=== PATIENT | female | born 1975 | race Caucasian/White ===

== ENCOUNTER 2022-01-15 02:33 | Emergency (ER) | payer MEDICAID ==
[~2022-01-15] VITALS: Ht 157.5 cm; Wt 70.8 kg
[2022-01-15 05:02] LABS: Basophils # (auto) 0 10 ^3/uL (0-0.2); Eosinophils # (auto) 0 10 ^3/uL (0-0.8); Lymphocytes # (auto) 1.4 10 ^3/uL (0.4-5.4); Monocytes # (auto) 0.2 10 ^3/uL (0-1.3); Neutrophils # (auto) 1.3 10 ^3/uL (1.6-8.6); Nucleated Red Blood Cells % 0.1 %
[2022-01-15 05:04] LABS: Basophils % (auto) 0.8 % (0.0-2.0); Hematocrit 38.8 % (36.0-46.0); Hemoglobin 13.3 g/dL (12.2-16.2); Lymphocytes % (auto) 48.2 % (10.0-50.0); Mean Corpuscular Hemoglobin 34.5 pg (28.0-32.0); Mean Corpuscular Hgb Conc. 34.4 g/dL (32.0-36.0); Mean Corpuscular Volume 100.3 fL (80.0-100.0); Monocytes % (auto) 7.2 % (0.0-12.0); Neutrophils % (auto) 42.8 % (37.0-80.0); Red Blood Cells 3.87 10^6/uL (4.0-5.20); Red Cell Distribution Width 16.5 % (11.8-14.3); White Blood Cell 2.9 10^3/uL (4.4-10.8)
[2022-01-15 05:24] LABS: Albumin 3.4 g/dL (3.4-5.0); Calcium 8.5 mg/dL (8.5-10.1); Potassium 3.3 mmol/L (3.5-5.1)
[2022-01-15 05:26] LABS: BUN/Creatinine Ratio 7.8
[2022-01-15 05:28] LABS: Bilirubin, Total 0.2 mg/dL (0.2-1.0); Total Protein 6.3 g/dL (6.4-8.2)
[2022-01-15 07:53] VITALS: BP 120/77
[2022-01-15] MEDS ORDERED: BENZ100C19 PO (09:59)
[2022-01-15] MEDS ORDERED: CLIN-203 PO (09:59)
[2022-01-15] MEDS ORDERED: PRE1T PO (11:03)
== END 2022-01-15 11:25 | disposition home or self-care (01) ==
LOC: ER 02:33
DX: L01.00 Impetigo, unspecified (principal); J44.9 Chronic obstructive pulmonary disease, unspecified; F17.210 Nicotine dependence, cigarettes, uncomplicated; Z88.5 Allergy status to narcotic agent; Z88.8 Allergy status to other drugs, medicaments and biological substances; Z20.822 Contact with and (suspected) exposure to COVID-19
CPT/HCPCS: 36415; 71045; 80053; 84484; 85025; 87426; 93005; 99285; C9803; U0003

== ENCOUNTER 2023-12-17 10:49 | Emergency (ER) | payer MEDICAID ==
[~2023-12-17] VITALS: Ht 167.6 cm; Wt 73.5 kg
[~2023-12-17 10:49] MED LIST: BENZ100C19 PO; CLIN-203 PO; CYCL-837 PO; IBUP-1456 PO; PRE1T PO
[2023-12-17 11:09] VITALS: BP 102/73; PULSE 88; RESP 18; O2SAT 96
[2023-12-17] MEDS ORDERED: HYDR-4902 PO (14:30)
[2023-12-17] MEDS ORDERED: NABU-72 PO (14:30)
== END 2023-12-17 14:38 | disposition home or self-care (01) ==
LOC: ER 10:49
DX: M25.552 Pain in left hip (principal); M25.522 Pain in left elbow; F17.210 Nicotine dependence, cigarettes, uncomplicated; J44.9 Chronic obstructive pulmonary disease, unspecified; Z88.6 Allergy status to analgesic agent; Z88.8 Allergy status to other drugs, medicaments and biological substances
CPT/HCPCS: 73080; 73502

== ENCOUNTER 2024-02-08 16:20 | Emergency (ER) | payer MEDICAID ==
[~2024-02-08] VITALS: Ht 165.1 cm; Wt 84.0 kg
[~2024-02-08 16:20] MED LIST changes: +HYDR-4902 PO; +NABU-72 PO
[2024-02-08 16:35] VITALS: PULSE 88; RESP 16; O2SAT 90
[2024-02-08 16:45] VITALS: TEMP 98.2
[2024-02-08 16:55] LABS: Basophils # (auto) 0 10 ^3/uL (0-0.2); Basophils % (auto) 0.4 % (0.0-2.0); Eosinophils # (auto) 0 10 ^3/uL (0-0.8); Eosinophils % (auto) 0.5 % (0.0-7.0); Hematocrit 44.1 % (36.0-46.0); Hemoglobin 14.8 g/dL (12.2-16.2); Lymphocytes # (auto) 3.1 10 ^3/uL (0.4-5.4); Mean Corpuscular Hemoglobin 32.9 pg (28.0-32.0); Mean Corpuscular Hgb Conc. 33.6 g/dL (32.0-36.0); Mean Corpuscular Volume 97.9 fL (80.0-100.0); Monocytes # (auto) 0.3 10 ^3/uL (0-1.3); Monocytes % (auto) 4.7 % (0.0-12.0); Neutrophils # (auto) 2.3 10 ^3/uL (1.6-8.6); Neutrophils % (auto) 39.4 % (37.0-80.0); Nucleated Red Blood Cells % 0.1 %; Red Cell Distribution Width 15.9 % (11.8-14.3); White Blood Cell 5.7 10^3/uL (4.4-10.8)
[2024-02-08 17:13] LABS: Alanine Aminotransferase 64 U/L (7-40); Albumin 4.5 g/dL (3.2-4.8); Alkaline Phosphatase 90 U/L (46-116); Anion Gap 5 (5-15); Aspartate Aminotransferase 93 U/L (13-40); BUN/Creatinine Ratio 6.8 (10.0-20.0); Bilirubin, Total 0.2 mg/dL (0.2-1.0); Blood Urea Nitrogen 5 mg/dL (9-23); Calcium 9.6 mg/dL (8.7-10.4); Carbon Dioxide 26 mmol/L (20-30); Chloride 113 mmol/L (98-107); Glucose 95 mg/dL (74-106); Potassium 3.6 mmol/L (3.5-5.1); Sodium 144 mmol/L (136-145); Total Protein 7.1 g/dL (5.7-8.2)
[2024-02-08 18:00] VITALS: BP 107/73; PULSE 77; RESP 12; O2SAT 97
== END 2024-02-08 19:28 | disposition home or self-care (01) ==
LOC: ER 16:20 → EDBD 16:20 → ER 19:28
DX: R29.5 Transient paralysis (principal); R53.1 Weakness; J44.9 Chronic obstructive pulmonary disease, unspecified; F17.210 Nicotine dependence, cigarettes, uncomplicated; Z88.6 Allergy status to analgesic agent; Z88.8 Allergy status to other drugs, medicaments and biological substances
CPT/HCPCS: 36415; 72100; 80053; 83880; 84484; 85025; 85379

== ENCOUNTER 2024-11-18 21:45 | Emergency (ER) | payer MEDICAID ==
[~2024-11-18] VITALS: Ht 170.2 cm; Wt 75.0 kg
[2024-11-18 21:53] VITALS: BP 106/73; PULSE 104; RESP 16; O2SAT 98
== END 2024-11-19 01:06 | disposition left against medical advice (07) ==
LOC: ER 21:45 → EDBD 21:45 → ER 11-19 01:06
DX: T14.8XXA Other injury of unspecified body region, initial encounter (principal); Z53.21 Procedure and treatment not carried out due to patient leaving prior to being seen by health care provider; W54.0XXA Bitten by dog, initial encounter; Y93.89 Activity, other specified; Y92.89 Other specified places as the place of occurrence of the external cause; Y99.8 Other external cause status

== ENCOUNTER 2024-11-28 18:06 | Emergency (ER) | payer MEDICAID ==
[~2024-11-28] VITALS: Ht 157.5 cm; Wt 72.0 kg
[2024-11-28 18:06] VITALS: BP 126/61; RESP 16; O2SAT 98
[~2024-11-28 18:06] MED LIST changes: +IOHEXOL 350 MG/ML 100ML IJ ONE
--- NOTE | 2024-11-28 18:20 | ECG ---
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
[2024-11-28 18:39] LABS: Basophils # (auto) 0 10 ^3/uL (0-0.2); Basophils % (auto) 0.5 % (0.0-2.0); Eosinophils # (auto) 0 10 ^3/uL (0-0.8); Eosinophils % (auto) 0.3 % (0.0-7.0); Hematocrit 44.6 % (36.0-46.0); Hemoglobin 15.2 g/dL (12.2-16.2); Lymphocytes # (auto) 2.6 10 ^3/uL (0.4-5.4); Mean Corpuscular Hgb Conc. 34.1 g/dL (32.0-36.0); Mean Corpuscular Volume 99.8 fL (80.0-100.0); Monocytes # (auto) 0.2 10 ^3/uL (0-1.3); Monocytes % (auto) 4.1 % (0.0-12.0); Neutrophils # (auto) 2.8 10 ^3/uL (1.6-8.6); Neutrophils % (auto) 49.1 % (37.0-80.0); Nucleated Red Blood Cells % 0.1 %; Platelet Count (auto) 248 10^3/uL (140-450); Red Blood Cells 4.46 10^6/uL (4.0-5.20); Red Cell Distribution Width 14.5 % (11.8-14.3); White Blood Cell 5.6 10^3/uL (4.4-10.8)
[2024-11-28 18:41] LABS: Urine Bacteria None Seen /hpf (None Seen)
[2024-11-28 18:54] LABS: Alkaline Phosphatase 59 U/L (46-116); Anion Gap 12 (5-15); Calcium 9.9 mg/dL (8.7-10.4); Carbon Dioxide 23 mmol/L (20-31); Glucose 99 mg/dL (74-106); Potassium 4.1 mmol/L (3.5-5.1); Sodium 144 mmol/L (136-145)
[2024-11-28 18:55] LABS: BUN/Creatinine Ratio 11.1 (10.0-20.0); Total Protein 7.1 g/dL (5.7-8.2)
[2024-11-28 18:57] LABS: Alanine Aminotransferase 72 U/L (7-40); Aspartate Aminotransferase 78 U/L (13-40); Bilirubin, Total 0.2 mg/dL (0.2-1.0); Blood Urea Nitrogen 7 mg/dL (9-23); Chloride 109 mmol/L (98-107)
[2024-11-28 19:00] LABS: Urine Blood Negative /uL (Negative); Urine Clarity Clear (Clear); Urine Color Colorless (Yellow); Urine Protein, UAD Negative (Negative); Urine Specific Gravity 1.002 (1.001-1.035); Urine Squamous Epithelial Cell None Seen /hpf (<5); Urine Urobilinogen Normal (Negative); Urine pH 5.5 (5.0-9.0)
[2024-11-28] MEDS: MECLIZINE HCL 25 MG TAB PO ONE (19:06)
[2024-11-28] MEDS: SODIUM CHLORIDE 0.9% 1,000 ML IV ONE (19:07)
[2024-11-28 19:11] LABS: Urine WBC 3 /HPF (0-5)
--- NOTE | 2024-11-28 19:12 | DVH ---
EXAM: CT HEAD WITHOUT CONTRAST INDICATION: Suspected CVA TECHNIQUE: CT of the head without intravenous contrast. Radiation Dose Information: CT Dose: CTDI volume is 58.28 mGy. Dose-length product is 1031.67 mGy*cm The dose indicators for CT are the volume Computed Tomography (CT) Dose Index (CTDIvol) and the Dose Length Product (DLP), and are measured in units of mGy and mGy-cm, respectively. These indicators are not patient dose, but values generated from the CT scanner acquisition factors. The report includes radiation exposure data for exposures received during this examination. COMPARISON: None FINDINGS: There is no evidence of acute intracranial hemorrhage, extra-axial collection, mass effect, midline s hift, herniation or hydrocephalus. The ventricles, sulci and cisterns are age appropriate. The barragan-white differentiation is intact. Patchy periventricular and subcortical white matter hypoattenuation is nonspecific but may be related to small vessel ischemic disease. The visualized paranasal sinuses and mastoid air cells are clear. The surrounding soft tissues and osseous structures are unremarkable. IMPRESSION: 1. No acute intracranial hemorrhage 2. No CT findings of territorial ischemia.
--- NOTE | 2024-11-28 19:27 | DVH ---
INDICATION: Suspected CVA COMPARISON: None TECHNIQUE:CTA neck with intravenous contrast. 3D/MIP image postprocessing was performed and images we re used for interpretation and reporting. Radiation Dose Information: CT Dose: CTDI volume is 22.35 mGy. Dose-length product is 772.72 mGy*cm FINDINGS: CTA neck: The aortic arch and proximal part of the major arch vessels are not imaged. Bilateral subclavian ana laverne, visualized bilateral common carotid arteries, and bilateral cervical ICAs are unremarkable. Bilateral vertebral arteries are unremarkable with left dominant vertebral artery. CTA head: Bilateral ACAS, bilateral MCAs and bilateral intracranial ICAs are unremarkable. Bilateral BLOOD BANK CALENDAR CONTROL CLERK, bilateral superior cerebellar arteries, basilar artery and bilateral intracranial checo tebral arteries are unremarkable. The dural venous sinuses opacify normally. No abnormal intracranial enhancement. Subcentimeter cervical lymph nodes largest over the Bilateral level ones measuring up to 0.8 cm on th e left. IMPRESSION: No hemodynamically significant stenosis, aneurysm or vascular malformation involving the major intrac ranial and neck vessels. CAROTID STENOSIS REFERENCE Distal internal carotid artery diameter as the denominator for stenosis measurement: MILD = <50% stenosis. MODERATE = 50-69% stenosis. SEVERE = 70-89% stenosis. CRITICAL = 90-99% stenosis. OCCLUDED = 100% stenosis. All CT scans at this medical facility are performed using dose modulation techniques as appropriate t o a performed exam including the following: Automated exposure control was utilized; adjustment of th e MA and/or KV according to patient size; and use of iterative reconstruction technique.
[2024-11-28 20:41] VITALS: PULSE 72
--- NOTE | 2024-11-28 20:41 | ED.PDOC ---
History of Present Illness HPI Comments 49-year-old female, with a reported history of endocarditis in 2019, asthma, and hyperlipidemia, is BIBA with complaint of dizziness and nausea, today. Patient endorses on sudden and unprovoked onset of symptoms, while washing dishes, earlier, today. She comments on dizziness having room-spinning sensation a ssociated with it and reports having an isolated episode of "ear-ringing," yesterday. Patient reports no further relevant or pertinent information, with exception of recent dog bite injury, last week, that she endorses on healing without complications, currently. Per EMS report, patient's vitals were reported to have been stable and within normal limits, with a blood glucose of 96. Patient denies any vomiting, fever, chills, headache, vision or speech changes, urinary symptoms, or other associated symptoms or modifiers at this time. Chief Complaint: Dizziness Time Seen by MD: 18:10 Primary Care Provider: CHRYSTAL Reviewed Notes: Nurses Notes, Research Investigator Notes, Medications, Allergies Allergies: Coded Allergies: Codeine (Verified Allergy, Unknown, 01/15/22) Polyethylene Glycol (Verified Allergy, Unknown, 01/15/22) Propylene Glycol (Verified Allergy, Unknown, 01/15/22) Saccharin (Verified Allergy, Unknown, 01/15/22) Sodium Benzoate (Verified Allergy, Unknown, 01/15/22) Home Meds Active Scripts Hydrocodone-Acetaminophen (Hydrocodone Bitartrate/AC 5-325 mg) 1 Tab Tab, 1 TAB PO Q6HP PRN for 5 Days, #12 TAB Prov:LORRI SALTER 12/17/23 Nabumetone (Nabumetone) 500 Mg Tab, 1 TAB PO BID PRN, #30 TAB Prov:LORRI SALTER 12/17/23 Cyclobenzaprine Hcl (Cyclobenzaprine Hcl) 5 Mg Tab, 1 TAB PO QPM PRN, #14 TAB 0 Refills Prov:WALT KUMAR 06/03/23 Ibuprofen (Ibuprofen) 800 Mg Tab, 1 TAB PO TID PRN, #30 TAB 0 Refills Prov:WALT KUMAR 06/03/23 Prednisone (PREDNISONE) 1 Mg Tb, 4 TAB PO BID for 5 Days, #10 TAB 3 Refills Prov:JANET GONZALEZ MD 01/15/22 Benzonatate (Tessalon Perles) 100 Mg Cap, 1 CAP PO TID PRN for 10 Days, #21 CAP Prov:JANET GONZALEZ MD 01/15/22 Clindamycin HCl (Clindamycin Hydrochloride) 300 Mg Cap, 450 MG PO TID for 10 Days, #90 CAP Prov:JANET GONZALEZ MD 01/15/22 Information Source: Patient, Emergency Med Personnel Mode of Arrival: EMS Severity: Moderate Timing: Hours Duration: Since onset Prehospital treatment: 12 Lead EKG, Accucheck, Validation Engineer Review of Systems: REVIEW OF SYSTEMS: No fever, no chills, or fatigue HEENT: No sore throat, no earache, no congestion, no neck pain. Cardiac: No chest pain. No palpitations. Lungs: No shortness of breath, no cough. GI: Nausea. No vomiting, no diarrhea, no constipation, no abdominal pain : No dysuria, frequency, or urgency. No hematuria. Musculoskeletal: No joint pain , no joint swelling, no extremity edema. Skin: No rash, no itching. Neuro: Dizziness. No headache, no weakness Vital Signs Vital Signs Date Time Temp Pulse Resp B/P (MAP) Pulse Ox O2 Delivery O2 Flow Rate FiO2 11/28/24 20:41 72 11/28/24 18:06 98.1 16 126/61 (82) 98 Physical Exam General: Awake, alert and oriented. No acute distress. Skin: Skin in warm, dry and intact. Appropriate color for ethnicity. HEENT: The head is normocephalic and atraumatic. Conjunctivae are clear without exudates or hemorrhage. Sclera is non-icteric. EOM are intact. No signs of nystagmus. Eyelids are normal in appearance without swelling or lesions. Oral mucosa is pink and moist Neck: The neck is supple with normal range of motion. No JVD. Cardiac: Heart rate and rhythm are normal. No murmurs, gallops, or rubs are auscultated. Respiratory: No signs of respiratory distress. Lung sounds are clear in all lobes bilaterally without rales, ronchi, or wheezes. Abdominal: Abdomen is soft, non-tender without distention. Bowel sounds are present and normoactive in all four quadrants. Extremities: Upper and lower extremities are atraumatic in appearance without deformity or edema. Neurological: The patient is awake, alert and oriented to person, place, and time with normal speech. Speech is clear. There is no facial asymmetry. Psychiatric: Appropriate mood and affect. Good judgement and insight. No visual or auditory hallucinations. Past Medical History PAST MEDICAL HISTORY: Asthma, COPD, High Lipids Past Medical History (Other): Endocarditis in 2019 Surgical History: Denies all surgeries TOLL TICKET CLERK History: Denies all TOLL TICKET CLERK Hx Family History Family History: Reviewed,noncontributory to illness Social History Smoker: Cigarettes Alcohol: Denies ETOH Use Drugs: Denies Drug Use Lives In: Home Was a procedure done? Was a procedure done?: No EKG EKG : Pulse Rate (adult): 72 [place]: Normal Cardiac Rhythm: NSR Block: None Hypertrophy: None ST: Normal Differential Dx Considerations may include: Differential diagnoses considered include but are not limited to cardiac structural disease, arrhythmia, acute coronary syndrome, orthostasis, pulmonary embolism, dissection, seizure, basilar stroke, other. X-Ray, Labs, Meds, VS Vital Signs Date Time Temp Pulse Resp B/P (MAP) Pulse Ox O2 Delivery O2 Flow Rate FiO2 11/28/24 20:41 72 11/28/24 18:15 72 11/28/24 18:06 98.1 73 16 126/61 (82) 98 Lab Test 11/28/24 19:25 11/28/24 18:36 11/28/24 18:26 Range/Units Troponin I High Sensitivity < 3 L < 3 L </=34 ng/L Urine Color Colorless Yellow Urine Clarity Clear Clear Urine pH 5.5 5.0-9.0 Urine Specific [place] 1.002 1.001-1.035 Urine Protein Negative Negative Urine Ketones Negative Negative Urine Blood Negative Negative /uL Urine Nitrite Negative Negative Urine Bilirubin Negative Negative Urine Urobilinogen Normal Negative mg/dL Urine Leukocyte Esterase Negative Negative /uL Urine RBC None seen 0 - 4 /hpf Urine Microscopic WBC 3 0-5 /HPF Urine Squamous Epithelial Cells None seen <5 /hpf Urine Bacteria None seen None Seen /hpf Urine Glucose Normal Normal mg/dL White Blood Count 5.6 4.4-10.8 10^3/uL Red Blood Count 4.46 4.0-5.20 10^6/uL Hemoglobin 15.2 12.2-16.2 g/dL Hematocrit 44.6 36.0-46.0 % Mean Corpuscular Volume 99.8 80.0-100.0 fL Mean Corpuscular Hemoglobin 34.0 H 28.0-32.0 pg Mean Corpuscular Hemoglobin Concent 34.1 32.0-36.0 g/dL Red Cell Distribution Width 14.5 H 11.8-14.3 % Platelet Count 248 140-450 10^3/uL Mean Platelet Volume 7.8 6.9-10.8 fL Neutrophils (%) (Auto) 49.1 37.0-80.0 % Lymphocytes (%) (Auto) 46.0 10.0-50.0 % Monocytes (%) (Auto) 4.1 0.0-12.0 % Eosinophils (%) (Auto) 0.3 0.0-7.0 % Basophils (%) (Auto) 0.5 0.0-2.0 % Neutrophils # (Auto) 2.8 1.6-8.6 10 ^3/uL Lymphocytes # (Auto) 2.6 0.4-5.4 10 ^3/uL Monocytes # (Auto) 0.2 0-1.3 10 ^3/uL Eosinophils # (Auto) 0 0-0.8 10 ^3/uL Basophils # (Auto) 0 0-0.2 10 ^3/uL Nucleated Red Blood Cells 0.1 % Sodium Level 144 136-145 mmol/L Potassium Level 4.1 3.5-5.1 mmol/L Chloride Level 109 H 98-107 mmol/L Carbon Dioxide Level 23 20-31 mmol/L Anion Gap 12 5-15 Blood Urea Nitrogen 7 L 9-23 mg/dL Creatinine 0.63 0.550-1.02 mg/dL Glomerular Filtration Rate Calc 110 >90 mL/min BUN/Creatinine Ratio 11.1 10.0-20.0 Serum Glucose 99 74-106 mg/dL Calcium Level 9.9 8.7-10.4 mg/dL Total Bilirubin 0.2 0.2-1.0 mg/dL Aspartate Amino Transferase (AST) 78 H 13-40 U/L Alanine Aminotransferase (ALT) 72 H 7-40 U/L Alkaline Phosphatase 59 46-116 U/L Total Protein 7.1 5.7-8.2 g/dL Albumin 5.0 H 3.2-4.8 g/dL Thyroid Stimulating Hormone (TSH) 1.21 0.55-4.78 uIU/mL Current Medications Medications (Trade) Dose Ordered Sig/Irving Route Start Time Stop Time Status Last Admin Sodium Chloride 1,000 ml @ 1,000 mls/hr Q1H ONCE IV 11/28/24 18:30 11/28/24 19:29 DC 11/28/24 19:07 Meclizine HCl (Antivert Tablet) 50 mg ONCE ONCE PO 11/28/24 18:30 11/28/24 18:31 DC 11/28/24 19:06 [place] [address] Ph: [phone] DIAGNOSTIC IMAGING Diagnostic Imaging Report : [id number] Signed PATIENT: KARI MOJICA ACCT: [id number] UNIT: [id number] : 1975 LOC: ER ROOM / BED: / AGE / SEX: 49 / F ADM STATUS: REG ER SERVICE [id number] ORDERING PHYSICIAN: CHUCK FRANK MD PROCEDURE(s): [place] - ANGIO HEAD/Neck REASON: Suspected CVA ORDER NUMBER(s): [id number], ACCESSION NUMBER(s): [id number] INDICATION: Suspected CVA COMPARISON: None TECHNIQUE:CTA neck with intravenous contrast. 3D/MIP image postprocessing was performed and images were used for interpretation and reporting. Radiation Dose Information: CT Dose: CTDI volume is 22.35 mGy. Dose-length product is 772.72 mGy*cm FINDINGS: CTA neck: The aortic arch and proximal part of the major arch vessels are not imaged. Bilateral subclavian arteries, visualized bilateral common carotid arteries, and bilateral cervical ICAs are unremarkable. Bilateral vertebral arteries are unremarkable with left dominant vertebral artery. CTA head: Bilateral ACAS, bilateral MCAs and bilateral intracranial ICAs are unremarkable. Bilateral PUMP SERVICER HELPER, bilateral superior cerebellar arteries, basilar artery and bilateral intracranial vertebral arteries are unremarkable. The dural venous sinuses opacify normally. No abnormal intracranial enhancement. Subcentimeter cervical lymph nodes largest over the Bilateral level ones measuring up to 0.8 cm on the left. IMPRESSION: No hemodynamically significant stenosis, aneurysm or vascular malformation involving the major intracranial and neck vessels. CAROTID STENOSIS REFERENCE Distal internal carotid artery diameter as the denominator for stenosis measurement: MILD = <50% stenosis. MODERATE = 50-69% stenosis. SEVERE = 70-89% stenosis. CRITICAL = 90-99% stenosis. OCCLUDED = 100% stenosis. All CT scans at this medical facility are performed using dose modulation techniques as appropriate to a performed exam including the following: Automated exposure control was utilized; adjustment of the MA and/or KV according to patient size; and use of iterative reconstruction technique. ATED BY: BESSIE QUIROZ DO DICTATED DATE/TIME: 11/28/241924 SIGNED BY: BESSIE QUIROZ DO SIGNED DATE/TIME: 11/28/241924 CC: [place] [id number] Ph: [phone] DIAGNOSTIC IMAGING Diagnostic Imaging Report : [id number] Signed PATIENT: KARI MOJICA ACCT: [id number] UNIT: [id number] : 1975 LOC: ER ROOM / BED: / AGE / SEX: 49 / F ADM STATUS: REG ER SERVICE 16 ORDERING PHYSICIAN: CHUCK FRANK MD PROCEDURE(s): HWOCT - HEAD WITHOUT CONTRAST REASON: Suspected CVA ORDER NUMBER(s): [id number], ACCESSION NUMBER(s): [id number] EXAM: CT HEAD WITHOUT CONTRAST INDICATION: Suspected CVA TECHNIQUE: CT of the head without intravenous contrast. Radiation Dose Information: CT Dose: CTDI volume is 58.28 mGy. Dose-length product is 1031.67 mGy*cm The dose indicators for CT are the volume Computed Tomography (CT) Dose Index (CTDIvol) and the Dose Length Product (DLP), and are measured in units of mGy and mGy-cm, respectively. These indicators are not patient dose, but values generated from the CT scanner acquisition factors. The report includes radiation exposure data for exposures received during this examination. COMPARISON: None FINDINGS: There is no evidence of acute intracranial hemorrhage, extra-axial collection, mass effect, midline shift, herniation or hydrocephalus. The ventricles, sulci and cisterns are age appropriate. The barragan-white differentiation is intact. Patchy periventricular and subcortical white matter hypoattenuation is nonspecific but may be related to small vessel ischemic disease. The visualized paranasal sinuses and mastoid air cells are clear. The surrounding soft tissues and osseous structures are unremarkable. IMPRESSION: 1. No acute intracranial hemorrhage 2. No CT findings of territorial ischemia. ATED BY: REYMUNDO GREENE Jr., DO DICTATED DATE/TIME: 11/28/241909 SIGNED BY: REYMUNDO GREENE Jr., SIGNED DATE/TIME: 11/28/241909 CC: Time of 1ST Reevaluation: 18:10 Reevaluation 1ST: Unchanged Patient Education/Counseling: Need For Follow Up Family Education/Counseling: No Family Present Departure 1 Departure Time of Disposition: : Impression: Primary Impression: Dizziness Additional Impression: Eloped from emergency department Disposition: LEFT AWOL/ELOPED Condition: Stable Comments 49-year-old female who presented with sudden onset of dizziness and vomiting. Despite our efforts, patient has decided to leave against medical advice. The patient has a normal mental status and full decisional capacity. Patient has been informed of the benefits of staying such as further diagnosis and treatment of possible serious etiology of the symptoms, and the risks of leaving such as , chronic pain, permanent disability or other serious adverse events which might be attributed to leaving. The patient displays clear understanding of these benefits and risks and chooses to leave. The patient is been informed also that they may return here at any time if they change their mind or need to further concerns or questions has been referred to their local medical physician for follow up [place]. Extensive evaluation was performed in attempt to identify or rule out: (See differential diagnosis section) The following tests were ordered, and results were reviewed by me: (See diagnostic results section) The following test were independently interpreted by me: EKG I reviewed and agreed with the following test results read by other providers: N/A I reviewed the following notes from the pt's past medical encounters: October 2024 for dog bite Additional information was gathered from interviewing the following independent historians: EMS personnel Discussion of management or test interpretation with external physician/other qualified health care management associate: N/A Critical Care Note Critical Care Time?: No Stability Stability form required: No Heart Score Heart Score: Heart Score Response (Comments) Value History N/A 0 EKG N/A 0 Age N/A 0 Risk Factors N/A 0 Troponin N/A 0 Total 0 I personally scribed for CHUCK FRANK MD ([email or web address]) on 11/28/24 at 20:41. Electronically submitted by Shimon Fitzgerald ([email or web address]). CHUCK FRANK MD Nov 28, 2024 20:41
== END 2024-11-28 19:50 | disposition left against medical advice (07) ==
LOC: EDBD 18:06 → ER 18:06
DX: R42 Dizziness and giddiness (principal); J44.9 Chronic obstructive pulmonary disease, unspecified; E78.5 Hyperlipidemia, unspecified; F17.210 Nicotine dependence, cigarettes, uncomplicated; Z53.29 Procedure and treatment not carried out because of patient's decision for other reasons; Z98.890 Other specified postprocedural states; Z88.5 Allergy status to narcotic agent; Z79.52 Long term (current) use of systemic steroids; Z88.1 Allergy status to other antibiotic agents
CPT/HCPCS: 36415; 70450; 70496; 70498; 80053; 81001; 82947; 84443; 84484; 85025; 93005; 96360; 99285; J7030; J8597; Q9967